=== PATIENT | female | born 1970 | race Caucasian/White ===

== ENCOUNTER 2017-08-07 20:07 | Emergency (ER) | payer BC ==
[2017-08-07 20:28] VITALS: BP 101/61
[2017-08-07] MEDS ORDERED: Nitrofurantoin Macrocrystals* 50 MG CAP PO ONE (20:34)
[2017-08-07] MEDS ORDERED: Ibuprofen TAB* 600 MG PO ONE (20:34)
--- NOTE | 2017-08-07 20:46 | UC ---
Complaint Female HPI - HPI Summary HPI Summary: This is an otherwise healthy 47 yo female who presents with c/o dysuria x 1 day. No hematuria or abd pain. No back pain. She also developed a SHANNON this afternoon with some nausea. She has a h/o of similar HAs. Took 400 mg ibuprofen without relief. No fever. - History Of Current Complaint Chief Complaint: UCGU Stated Complaint: POSS UTI Hx Last Menstrual Period: 07/26/17 Pain Intensity: 7 - Allergies/Home Medications Allergies/Adverse Reactions: Allergies Allergy/AdvReac Type Severity Reaction Status Date / Time Penicillins Allergy Hives Verified 08/07/17 20:20 Home Medications: Home Medications Ibuprofen TAB* [Advil TAB*] 400 mg PO ONCE 08/07/17 [History Confirmed 08/07/17] PMH/Surg Hx/FS Hx/Imm Hx Previously Healthy: Yes - Surgical History Surgical History: None - Family History Known Family History: Negative: Cardiac Disease, Hypertension, Diabetes - Social History Alcohol Use: Occasionally Substance Use Type: None Smoking Status (MU): Never Smoked Tobacco Review of Systems Constitutional: Negative Skin: Negative Eyes: Negative ENT: Negative Respiratory: Negative Cardiovascular: Negative Gastrointestinal: Negative Genitourinary: Dysuria Motor: Negative Neurovascular: Negative Musculoskeletal: Negative Neurological: Negative Psychological: Negative Is Patient Immunocompromised?: No All Other Systems Reviewed And Are Negative: Yes Physical Exam Triage Information Reviewed: Yes Appearance: Pain Distress Vital Signs: Initial Vital Signs Temp 97.7 F 08/07/17 20:21 Pulse 73 08/07/17 20:21 Resp 18 08/07/17 20:21 BP 101/61 08/07/17 20:21 Pulse Ox 100 08/07/17 20:21 Vital Signs Reviewed: Yes ENT Exam: Normal Neck exam: Normal Respiratory Exam: Normal Respiratory: Positive: Lungs clear Cardiovascular: Positive: RRR, No Murmur Abdominal Exam: Normal Abdomen Description: Positive: Nontender. Negative: CVA Tenderness (R), CVA Tenderness (L) Musculoskeletal Exam: Normal Musculoskeletal: Positive: Strength Intact Neurological Exam: Normal Psychological Exam: Normal Psychological: Positive: Normal Response To Family Skin Exam: Normal Diagnostics - Laboratory Diagnostic Studies Completed/Ordered: UA - +blood, + protein, + leuk esterase Complaint Female Dx - Course Course Of Treatment: Otherwise healthy 47 yo female with dysuria and a SHANNON. UA suggestive of UTI. Treat for uncomplicated UTI with 5d nitrofurantoin - Differential Dx/Diagnosis Differential Diagnosis/HQI/PQRI: Sexually Transmitted Disease, Urinary Tract Infection Provider Diagnoses: 1. UTI. 2. SHANNON Discharge - Sign-Out/Discharge Documenting (check all that apply): Discharge/Admit/Transfer - Discharge Plan Condition: Stable Disposition: HOME Prescriptions: Nitrofurantoin Macrocrystal [Nitrofurantoin] 100 mg PO BID #10 capsule Patient Education Materials: Urinary Tract Infection in Women (DC) Referrals: Sachin Oliver MD [Primary Care Provider] - Additional Instructions: Instructions: 1. Please take antibiotics as directed 2. Follow up with your primary care provider if your symptoms do not improve - Billing Disposition and Condition Condition: STABLE Disposition: HOME
--- NOTE | 2017-08-09 15:10 | UC ---
- Progress Note Progress Note: negative urine culture can stop antibiotics recheck with PCP as needed Discharge - Sign-Out/Discharge Documenting (check all that apply): Discharge/Admit/Transfer - Discharge Plan Condition: Stable Disposition: HOME Prescriptions: Nitrofurantoin Macrocrystal [Nitrofurantoin] 100 mg PO BID #10 capsule Patient Education Materials: Urinary Tract Infection in Women (DC) Referrals: Sachin Oliver MD [Primary Care Provider] - Additional Instructions: Instructions: 1. Please take antibiotics as directed 2. Follow up with your primary care provider if your symptoms do not improve - Billing Disposition and Condition Condition: STABLE Disposition: HOME
== END 2017-08-07 20:40 | disposition home or self-care (01) ==
LOC: UCEAST 20:07
DX: N39.0 Urinary tract infection, site not specified (principal); R51 Headache; Z88.0 Allergy status to penicillin
CPT/HCPCS: 81003; 87086; 99212; A9270-GY; G0463

== ENCOUNTER 2018-08-06 07:01 | Emergency (ER) | payer BC ==
[2018-08-06 07:27] VITALS: BP 105/63
--- NOTE | 2018-08-06 07:56 | UC ---
UC General HPI - HPI Summary HPI Summary: States she went on a long road trip 4 days ago and did not stop to pee as often as she should have. Noted she was having some discomfort when she returned and then this morning, dysuria and urgency were much more notable. No hematuria. No fever. No back pain. No N/V/D. Some abdominal discomfort. No vaginal itching. Is not concerned for a STI. No excessive vaginal discharge. Also concern for her ears ringing. That it was related to her ADHD medication that she just discontinued a week and half ago but the ear ringing has persisted. Meds; reviewed - History of Current Complaint Chief Complaint: UCGU Stated Complaint: URINE ISSUES Time Seen by Provider: 08/06/18 07:48 Hx Last Menstrual Period: 07/27/18 Pain Intensity: 5 - Allergy/Home Medications Allergies/Adverse Reactions: Allergies Allergy/AdvReac Type Severity Reaction Status Date / Time Penicillins Allergy Hives Verified 08/06/18 07:20 PMH/Surg Hx/FS Hx/Imm Hx Previously Healthy: Yes - Surgical History Surgical History: None - Family History Known Family History: Negative: Cardiac Disease, Hypertension, Diabetes - Social History Alcohol Use: Rare Substance Use Type: None Smoking Status (MU): Never Smoked Tobacco Review of Systems All Other Systems Reviewed And Are Negative: Yes Skin: Positive: Negative Genitourinary: Positive: Dysuria, Frequency Physical Exam Triage Information Reviewed: Yes Appearance: Well-Appearing Vital Signs: Initial Vital Signs Temp 97.8 F 08/06/18 07:21 Pulse 70 08/06/18 07:21 Resp 18 08/06/18 07:21 BP 105/63 08/06/18 07:21 Pulse Ox 100 08/06/18 07:21 Vital Signs Reviewed: Yes ENT: Positive: Pharynx normal, TMs normal Neck: Positive: Supple Respiratory: Positive: Lungs clear, Normal breath sounds Cardiovascular: Positive: RRR, No Murmur Abdomen Description: Positive: Other: - mild suprapubic tenderness. No CVA tenderness Skin Exam: Normal Course/Dx - Course Course Of Treatment: This is a 48 yr old with dysuria and ears ringing Assessement U/A: Consistent with a UTI Plan REcommend starting Bactrim as prescribed Continue drinking plenty of fluids We will call you if culture is not sensitive to antibiotics that you are taking to have you change the antibiotic Recommend follow up with ENT [phone] if ears continue to ring If symptoms persist or worsen, call your PCP for further evaluation or return to urgent care - Diagnoses Provider Diagnosis: UTI (urinary tract infection), Tinnitus Discharge - Sign-Out/Discharge Documenting (check all that apply): Patient Departure All imaging exams completed and their final reports reviewed: No Studies - Discharge Plan Condition: Good Disposition: HOME Prescriptions: Sulfamethox/Trimethoprim DS* [Bactrim DS 800/160 TAB*] 1 tab PO BID #6 tab Patient Education Materials: Urinary Tract Infection in Women (ED), Tinnitus ( ED) Referrals: Sachin Oliver MD [Primary Care Provider] - Additional Instructions: REcommend starting Bactrim as prescribed Continue drinking plenty of fluids We will call you if culture is not sensitive to antibiotics that you are taking to have you change the antibiotic Recommend follow up with ENT [phone] if ears continue to ring If symptoms persist or worsen, call your PCP for further evaluation or return to urgent care - Billing Disposition and Condition Condition: GOOD Disposition: Home
--- NOTE | 2018-08-07 16:11 | UC ---
- Progress Note Progress Note: please notify pt NO UTI Stop antibiotic see primary care for follow up as she has hematuria Course/Dx - Diagnoses Provider Diagnoses: UTI (urinary tract infection), Tinnitus Discharge - Sign-Out/Discharge Documenting (check all that apply): Post-Discharge Follow Up All imaging exams completed and their final reports reviewed: No Studies - Discharge Plan Condition: Good Disposition: HOME Prescriptions: Sulfamethox/Trimethoprim DS* [Bactrim DS 800/160 TAB*] 1 tab PO BID #6 tab Patient Education Materials: Urinary Tract Infection in Women (ED), Tinnitus ( ED) Referrals: Sachin Oliver MD [Primary Care Provider] - Additional Instructions: REcommend starting Bactrim as prescribed Continue drinking plenty of fluids We will call you if culture is not sensitive to antibiotics that you are taking to have you change the antibiotic Recommend follow up with ENT [phone] if ears continue to ring If symptoms persist or worsen, call your PCP for further evaluation or return to urgent care - Billing Disposition and Condition Condition: GOOD Disposition: Home
== END 2018-08-06 08:22 | disposition home or self-care (01) ==
LOC: UCEAST 07:01
DX: N39.0 Urinary tract infection, site not specified (principal); H93.13 Tinnitus, bilateral; F90.9 Attention-deficit hyperactivity disorder, unspecified type; Z88.0 Allergy status to penicillin
CPT/HCPCS: 81003; 87086; 99212; G0463